=== PATIENT | male | born 1975 | race Caucasian/White ===

== ENCOUNTER → 2022-06-20 16:04 | Outpatient (CLI) | payer OTHER, SELFPAY ==
--- NOTE | 2022-06-20 16:08 | DI.RAD.S_ITS ---
PROCEDURE: XR FOOT LT MIN 3V INDICATIONS: trauma TECHNIQUE: 3 views of the foot were acquired. COMPARISON: None. FINDINGS: Bones: No fractures or dislocations. No suspicious bony lesions. Plantar and posterior calcaneal spurs. Soft tissues: No tibiotalar joint effusion. Achilles tendon appears normal. Soft tissue edema along the dorsal foot. IMPRESSION: Dorsal foot edema without fracture identified Dictated by: Alpesh Sepulveda M.D. on 06/20/2022 at 16:12 Approved by: Alpesh Sepulveda M.D. on 06/20/2022 at 16:13
== END ==
PROVIDERS: Referring Provider Nurse Practitioner Family; Visit Provider Nurse Practitioner Family
DX: S99.922A Unspecified injury of left foot, initial encounter (principal); M77.32 Calcaneal spur, left foot; X58.XXXA Exposure to other specified factors, initial encounter
CPT/HCPCS: 73630

== ENCOUNTER → 2022-09-23 13:02 | Outpatient (CLI) | payer OTHER, SELFPAY ==
--- NOTE | 2022-10-06 16:19 | DIAB.MNT ---
Addendum entered by Meri Carson 10/20/22 17:42: Medication correction Diabetes Medications: 500mg Metformin BID 5mg Farxiga Original Note: Initial Diabetes Medical Nutrition Therapy Assessment Name: Fer Solitario Date: 09/23/22 Time: 1-220p Dx: Type II Diabetes Provider: Jorge Monroe presents for initial visit with spouse, Joan. Only FH reported is maternal uncle with DM. Reports new diagnosis of Dm with hgA1c of 10.4% per referral. Diagnosis made after a foot injury was not healing properly. States he has been borderline with BG for a few years and dealt with BP issues for years. Reports they are interested in learning more about nutrition, reducing Dm complications, and problem solving for BG. h/o low carb dieting. Diet Recall: 6am: 1 can V8 with 12oz milk and meds 9-10a: apple or beef jerky 11a: leftovers; lunch meat with cottage cheese and tomatoes; tacos 5p: tacos on low carb tortillas or 3 corn tortillas with 1/3c or less beans, meat and veggies ; meatballs with veggies and rice or potatoes x 1/2-1c ; portuguese dip sandwich on roll with 1c tater tots and salad Beverages; water 78-104oz, zip fizz, ETOH x 4 servings Anthropometrics: Ht: 6' Wt: 222# last PCP visit 07/27/22 Physical Activity: No intentional program. Has a stationary bike but does not enjoy it. Difficult to use it more than 10 mins. Enjoys hiking and walking. Self-Monitoring Blood Glucose: Checking FBG. Reports usual range of 120-145mg/dL. today pre lunch of 109mg/dL. August B, 155, 150, 144, 147, 138, 135. Diabetes Medications: 500mg Metformin BID 25mg Farxiga Pertinent Labs: 07/21/22 hgA1c 10.4% H Total cholesterol: 242 H Triglycerides 134 LDL: 147 H HDL: 69 AST: 17 ALT: 47 H Past Medical History: Reported: HTN, retinopathy Nutrition Rx: Carbohydrates: Daily: 130-180 Meal:45-60g Snack:15-30g Nutrition Diagnosis: - Nutrition and food related knowledge deficit r/t new dx of DM aeb hgA1c 10.4% and diet recall indicating inconsistent CHO intake - Excessive ETOH intake r/t stage of change and knowledge deficit aeb diet recall and pt report - Physical inactivity r/t no intentional program aeb pt report Intervention: This participant was very receptive. Provided appropriate educational handouts. Discussed the following topics: Completed intake assessment. Discussed barriers to care. Pathophysiology of T2DM HgA1c, its correlation to blood glucose numbers, and rationale for goal Importance of self-monitoring, how often, and when to check. Suggested checking at different times to evaluate meals Plate Method, impact of macronutrients on blood sugar, meal timing, carbohydrate counting, pairing macronutrients and spreading out carbohydrates for better blood glucose management Recommended servings for carbohydrates at meals and snacks Heart health nutrition; ETOH recs Role of physical activity and following provider guidelines for safety Created SMART goals for patient self-care and success. Goals: 10-15 min on bike 2-3 days per week incorporate weekend walks Measure carb portions Cut ETOH portion in half (2 servings) Follow-up: [facility] follow-up in 3-4 weeks Meri Carson RDN, MARIS Certified Diabetes Care and Postdoctoral Research Associate P: [phone] Thank you for this referral
== END ==
PROVIDERS: Referring Provider Family Medicine; Visit Provider Family Medicine
DX: E11.9 Type 2 diabetes mellitus without complications (principal); Z71.3 Dietary counseling and surveillance
CPT/HCPCS: 97802

== ENCOUNTER → 2022-10-14 14:51 | Outpatient (CLI) | payer OTHER, SELFPAY ==
--- NOTE | 2022-10-20 17:21 | DIAB.MNTFU ---
Follow-up Diabetes Medical Nutrition Therapy Assessment Name: Fer Solitario Date: 10/14/22 Time: 3-340p Dx: Type II Diabetes Fer presents today for follow-up DM visit. States he has been taking meds as rx'd. Reports increasing physical activity and being more conscious of nutrition choices. Endorses measuring carb portions and reducing ETOH portions by half to 2 servings per day. Diet recall indicates moderate to low carb intake at meals and snacks. Aiming for 45g CHO at meals, as discussed last visit. >5 hours between lunch and dinner, which could increase excessive hunger at dinner. Also trying to avoid snacks in the evening. Encouraged setting a balanced snack. States he has been rx'd Metformin XR, but he is still waiting on availability at the pharmacy. Furthermore, he reports no GI distress with Metformin. Has not tried higher dose. Has concerns with higher cost of SGLT2i. May benefit from increase in Metformin to max dose and d/c Farxiga. Sees PCP in December. Dr. Coello has placed new labs for Fer to complete prior to visit in December. Encouraged Fer to complete these prior to their visit. Anthropometrics: Ht: 6' Wt: 222# last PCP visit 07/27/22 (no new wts) Physical Activity: More active lately at work. When not as active at work, on stationary bike fo r10-15 minutes. Incorporating weekend walks with the family. Self-Monitoring Blood Glucose: checking >2 times per day, which is helpful but discussed that he could keep it to 1-2x per day if he prefer. 3/ elevated FBG (just over 130). All other readings in goal. Date Pre Post Pre Post Pre Post HS 10/06 120 88 125 152 10/07 130 112 118 10/08 128 120 107 117 10/09 141 121 10/11 134 134 10/13 130 95 117 137 118 10/14 136 97 111 Diabetes Medications: 500mg Metformin BID 5mg Farxiga Pertinent Labs: 07/21/22 hgA1c 10.4% H Total cholesterol: 242 H Triglycerides 134 LDL: 147 H HDL: 69 AST: 17 ALT: 47 H Past Medical History: Reported: HTN, retinopathy Nutrition Rx: Carbohydrates: Daily: 130-180 Meal:45-60g Snack:15-30g Nutrition Diagnosis: - Nutrition and food related knowledge deficit r/t new dx of DM aeb hgA1c 10.4% and diet recall indicating inconsistent CHO intake - improved - Excessive ETOH intake r/t stage of change and knowledge deficit aeb diet recall and pt report - improved - Physical inactivity r/t no intentional program aeb pt report - improved and in progress - Inconsistent energy intake r/t long periods of fasting between lunch and dinner aeb diet recall- new Intervention: This participant was very receptive. Provided appropriate educational handouts. Discussed the following topics: Blood sugar review and trends. Impact of food intake on results. Nutrition review Medication review: potential for increase in Metformin if provider agrees Meal timing Snack list provided Physical activity plan and progress Created SMART goals for patient self-care and success. Goals: 10-15 min on bike 2-3 days per week- met incorporate weekend walks- met Measure carb portions- met Cut ETOH portion in half (2 servings)- met Complete labs prior to PCP visit in December- new Cont bike 2-3 x per week- new Cont weekend walks- new Option to add set afternoon and HS balanced snack-new Follow-up: [facility] follow-up in 6 weeks. Fer would like to push out follow-up since things seem to be going well. Will follow-up prior to PCP visit to encouraged continued lifestyle change. Meri Carson RDN, PAULINEES Certified Diabetes Care and [employer] P: [phone] Thank you for this referral
== END ==
PROVIDERS: Referring Provider Family Medicine; Visit Provider Family Medicine
DX: Z23 Encounter for immunization (principal)
CPT/HCPCS: 97803

== ENCOUNTER → 2022-12-23 14:19 | Outpatient (CLI) | payer OTHER, SELFPAY ==
--- NOTE | 2022-12-23 15:01 | DIAB.MNTFU ---
Follow-up Diabetes Medical Nutrition Therapy Assessment Name: Fer Solitario Date: 12/23/22 Time: 230-250p Dx: Type II Diabetes Fer presents for follow-up DM visit. Reports continued success with lifestyle changes. Diet going well. Continues to avoid sweets and sub fruit. Sometimes eats dry fruit in small quantity. Diet recall indicates moderate to low carb intake. Staying hydrated. Endorses seeing retina specialist and regular eye doctor annually or more. H/o retina issue. Sees dentist twice per year. Checks feet regularly. H/o foot injury during home construction project. Happy to almost be done with home construction project. States he saw his [facility] PCP since our last visit and hgA1c POC was <7%. Has [facility]CP appt scheduled at the end of the month. Has not completed labs yet. 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 No family walks. Hoping this will package pick up again after project is complete. Self-Monitoring Blood Glucose: BG even more improved from last visit with most FBG in the 120s. Pre lunch <115 and pre dinner often <120. Feels he is tired of checking BG so often. Encouraged checking 1-2x per day last visit. Can take a safe break from checking, but encouraged Fer to not stop SMBG all together intermediate. Diabetes Medications: 500mg Metformin BID 5mg Farxiga Pertinent Labs: Possible POC HgA1c of <7% last PCP visit 07/21/22 hgA1c 10.4% H Total cholesterol: 242 H Triglycerides 134 LDL: 147 H HDL: 69 AST: 17 ALT: 47 H Past Medical History: (Last Updated 10/07/22 @ 15:03 by Thad Coello, ) Hyperglycemia Past Medical History: Reported: HTN, retinopathy Nutrition Rx: Carbohydrates: Daily: 130-180 Meal:45-60g Snack:15-30g Nutrition Diagnosis: - Physical inactivity r/t no intentional program aeb pt report - in progress - Inconsistent energy intake r/t long periods of fasting between lunch and dinner aeb diet recall- continued Intervention: This participant was very receptive. Provided appropriate educational handouts. Discussed the following topics: Blood sugar review and trends. Portions for dried fruit SMBG recs and making time for a break without d/c all together Risk reduction: eye, dental, foot care Physical activity plan and progress Created SMART goals for patient self-care and success. Goals: Complete labs prior to PCP visit in December- in progress Cont bike 2-3 x per week- not met Cont weekend walks- not met Option to add set afternoon and HS balanced snack-continue Can take a break from SMBG for 2 weeks, then check at least 2-3x per week- new Be mindful of dried fruit portions- new Follow-up: [facility] follow-up prn. Fer is managing DM very well. Encouraged him to call or message with any questions or follow-up needs. Sees [facility] as a new pt this month. Encouraged him to complete labs prior. Meri Carson RDN, MARIS Certified Diabetes Care and Lean Manufacturing Engineer P: [phone] Thank you for this referral
== END ==
PROVIDERS: PCP Family Medicine; Referring Provider Family Medicine; Visit Provider Family Medicine
DX: E11.9 Type 2 diabetes mellitus without complications (principal); Z71.3 Dietary counseling and surveillance; Z79.84 Long term (current) use of oral hypoglycemic drugs
CPT/HCPCS: 97803

== ENCOUNTER → 2023-01-01 08:06 | Outpatient (CLI) | payer OTHER, SELFPAY ==
[2023-01-01 09:13] LABS: Alanine Aminotransferase 73 IU/L (<50); Albumin 4.6 g/dL (3.5-5.0); Albumin Globulin Ratio 1.8 (1.0-2.8); Alkaline Phosphatase 57 U/L (38-126); Aspartate Aminotransferase 44 IU/L (17-59); BUN Creatinine Ratio 15.6 (6-22); Bilirubin Total 1.1 mg/dL (0.2-1.3); Blood Urea Nitrogen 15 mg/dL (9-20); Calcium 9.1 mg/dL (8.4-10.2); Carbon Dioxide 28 mmol/L (22-32); Chloride 98 mmol/L (98-107); Estimated Glomerular Filt Rate > 60 mL/min (>60); Globulin 2.5 g/dL (1.7-4.1); Glucose 110 mg/dL (70-100); HEMOLYSIS < 15 (0-50); Potassium 4.3 mmol/L (3.4-5.1); Sodium 135 mmol/L (137-145); Total Protein 7.1 g/dL (6.3-8.2)
== END ==
PROVIDERS: PCP Family Medicine; Referring Provider Family Medicine; Visit Provider Family Medicine
DX: R73.9 Hyperglycemia, unspecified (principal)
CPT/HCPCS: 36415; 80053; 83036

== ENCOUNTER → 2023-07-30 07:51 | Outpatient (CLI) | payer OTHER, SELFPAY ==
[2023-07-30 10:15] LABS: Alanine Aminotransferase 55 IU/L (<50); Albumin 4.5 g/dL (3.5-5.0); Albumin Globulin Ratio 1.7 (1.0-2.8); Alkaline Phosphatase 62 U/L (38-126); Aspartate Aminotransferase 30 IU/L (17-59); BUN Creatinine Ratio 18.9 (6-22); Bilirubin Total 0.9 mg/dL (0.2-1.3); Blood Urea Nitrogen 17 mg/dL (9-20); Calcium 9.9 mg/dL (8.4-10.2); Carbon Dioxide 27 mmol/L (22-32); Chloride 95 mmol/L (98-107); Cholesterol 210 mg/dL (140-199); Estimated Glomerular Filt Rate > 60 mL/min (>60); Globulin 2.6 g/dL (1.7-4.1); Glucose 154 mg/dL (70-100); HDL Cholesterol 63 mg/dL (40-60); HEMOLYSIS < 15 (0-50); LDL Cholesterol Calculated 126 mg/dL (<100); Potassium 4.6 mmol/L (3.4-5.1); Sodium 133 mmol/L (137-145); Total Protein 7.1 g/dL (6.3-8.2); Triglycerides 107 mg/dL (35-150)
[2023-07-30 15:50] LABS: Hemoglobin A1C% w Est Avg Glu 6.6 % (4.0-6.0)
== END ==
PROVIDERS: PCP Family Medicine; Referring Provider Family Medicine; Visit Provider Family Medicine
DX: E11.9 Type 2 diabetes mellitus without complications (principal); I10 Essential (primary) hypertension
CPT/HCPCS: 36415; 80053; 80061; 83036

== ENCOUNTER → 2024-01-30 15:11 | Outpatient (CLI) | payer OTHER, SELFPAY ==
[2024-01-30 16:54] LABS: Hemoglobin A1C% w Est Avg Glu 6.9 % (4.0-6.0)
[2024-01-30 17:09] LABS: Alanine Aminotransferase 37 IU/L (<50); Albumin 4.8 g/dL (3.5-5.0); Albumin Globulin Ratio 2.1 (1.0-2.8); Alkaline Phosphatase 73 U/L (38-126); Aspartate Aminotransferase 21 IU/L (17-59); BUN Creatinine Ratio 17.6 (6-22); Bilirubin Total 0.6 mg/dL (0.2-1.3); Blood Urea Nitrogen 16 mg/dL (9-20); Calcium 9.7 mg/dL (8.4-10.2); Carbon Dioxide 32 mmol/L (22-32); Chloride 100 mmol/L (98-107); Cholesterol 216 mg/dL (140-199); Estimated Glomerular Filt Rate > 60 mL/min (>60); Globulin 2.3 g/dL (1.7-4.1); Glucose 130 mg/dL (70-100); HDL Cholesterol 71 mg/dL (40-60); HEMOLYSIS < 15 (0-50); LDL Cholesterol Calculated 112 mg/dL (<100); Sodium 138 mmol/L (137-145); Total Protein 7.1 g/dL (6.3-8.2); Triglycerides 164 mg/dL (35-150)
[2024-01-30 17:36] LABS: TSH w/ Reflex to FT4 2.26 uIU/mL (0.47-4.68)
== END ==
LOC: LAB 15:12
PROVIDERS: PCP Family Medicine; Referring Provider Family Medicine; Visit Provider Family Medicine
DX: R53.83 Other fatigue (principal); I10 Essential (primary) hypertension; E11.9 Type 2 diabetes mellitus without complications
CPT/HCPCS: 36415; 80053; 80061; 83036; 84443

== ENCOUNTER → 2024-07-21 07:32 | Outpatient (CLI) | payer OTHER, SELFPAY ==
[2024-07-21 09:00] LABS: Alanine Aminotransferase 42 IU/L (<50); Albumin 4.7 g/dL (3.5-5.0); Albumin Globulin Ratio 1.7 (1.0-2.8); Alkaline Phosphatase 57 U/L (38-126); Aspartate Aminotransferase 34 IU/L (17-59); BUN Creatinine Ratio 20.7 (6-22); Blood Urea Nitrogen 18 mg/dL (9-20); Carbon Dioxide 28 mmol/L (22-32); Chloride 96 mmol/L (98-107); Cholesterol 221 mg/dL (140-199); Estimated Glomerular Filt Rate > 60 mL/min (>60); Globulin 2.7 g/dL (1.7-4.1); Glucose 177 mg/dL (70-100); HDL Cholesterol 60 mg/dL (40-60); HEMOLYSIS 26 (0-50); LDL Cholesterol Calculated 130 mg/dL (<100); Potassium 4.9 mmol/L (3.4-5.1); Sodium 132 mmol/L (137-145); Total Protein 7.4 g/dL (6.3-8.2); Triglycerides 153 mg/dL (35-150)
[2024-07-21 09:02] LABS: Hemoglobin A1C% w Est Avg Glu 6.7 % (4.0-6.0)
== END ==
PROVIDERS: PCP Family Medicine; Referring Provider Family Medicine; Visit Provider Family Medicine
DX: E78.5 Hyperlipidemia, unspecified (principal); I10 Essential (primary) hypertension; E11.9 Type 2 diabetes mellitus without complications
CPT/HCPCS: 36415; 80053; 80061; 83036

== ENCOUNTER → 2025-02-09 07:37 | Outpatient (CLI) | payer OTHER, SELFPAY ==
[2025-02-09 09:08] LABS: Hemoglobin A1C% w Est Avg Glu 6.1 % (4.0-6.0)
[2025-02-09 09:26] LABS: Alanine Aminotransferase 20 IU/L (<50); Albumin 4.6 g/dL (3.5-5.0); Albumin Globulin Ratio 2.3 (1.0-2.8); Alkaline Phosphatase 69 U/L (38-126); Aspartate Aminotransferase 19 IU/L (17-59); BUN Creatinine Ratio 18.4 (6-22); Bilirubin Total 0.8 mg/dL (0.2-1.3); Blood Urea Nitrogen 16 mg/dL (9-20); Calcium 9.7 mg/dL (8.4-10.2); Carbon Dioxide 27 mmol/L (22-32); Chloride 99 mmol/L (98-107); Cholesterol 192 mg/dL (140-199); Estimated Glomerular Filt Rate > 60 mL/min (>60); Glucose 129 mg/dL (70-99); HDL Cholesterol 45 mg/dL (40-60); HEMOLYSIS < 15 (0-50); LDL Cholesterol Calculated 129 mg/dL (<100); Potassium 4.6 mmol/L (3.4-5.1); Sodium 135 mmol/L (137-145); Total Protein 6.6 g/dL (6.3-8.2); Triglycerides 89 mg/dL (35-150)
[2025-02-09 09:55] LABS: Prostate Specific Antigen 0.938 ng/mL (0.10-4.00)
== END ==
LOC: LAB 07:38
PROVIDERS: PCP Family Medicine; Referring Provider Family Medicine; Visit Provider Family Medicine
DX: E78.5 Hyperlipidemia, unspecified (principal); E11.9 Type 2 diabetes mellitus without complications; I10 Essential (primary) hypertension; Z00.00 Encounter for general adult medical examination without abnormal findings
CPT/HCPCS: 36415; 80053; 80061; 83036; 84153

== ENCOUNTER → 2025-09-21 07:38 | Outpatient (CLI) | payer OTHER, SELFPAY ==
[2025-09-21 09:16] LABS: Add Manual Diff / Slide Review NO; Hematocrit 48.7 % (41-53); Hemoglobin 17.1 g/dL (13.5-17.5); Lymphocytes Absolute Auto 2100 /uL (1100-4500); Mean Corpuscular HGB Conc 35.0 % (30-36); Mean Corpuscular Hemoglobin 30.7 PG (26-34); Mean Corpuscular Volume 87.8 fL (80-100); Platelet Count 243 X10^3/uL (150-400)
[2025-09-21 09:24] LABS: Hemoglobin A1C% w Est Avg Glu 6.2 % (4.0-6.0)
[2025-09-21 09:41] LABS: Alanine Aminotransferase 18 IU/L (<50); Albumin 4.7 g/dL (3.5-5.0); Albumin Globulin Ratio 1.9 (1.0-2.8); Alkaline Phosphatase 68 U/L (38-126); Blood Urea Nitrogen 15 mg/dL (9-20); Calcium 10.1 mg/dL (8.4-10.2); Carbon Dioxide 27 mmol/L (22-32); Chloride 101 mmol/L (98-107); Cholesterol 218 mg/dL (140-199); Estimated Glomerular Filt Rate > 60 mL/min (>60); Globulin 2.5 g/dL (1.7-4.1); Glucose 133 mg/dL (70-99); HDL Cholesterol 57 mg/dL (40-60); HEMOLYSIS < 15 (0-50); Potassium 4.6 mmol/L (3.4-5.1); Sodium 138 mmol/L (137-145); Total Protein 7.2 g/dL (6.3-8.2); Triglycerides 151 mg/dL (35-150)
== END ==
PROVIDERS: PCP Family Medicine; Referring Provider Family Medicine; Visit Provider Family Medicine
DX: E78.5 Hyperlipidemia, unspecified (principal); I10 Essential (primary) hypertension; E11.9 Type 2 diabetes mellitus without complications
CPT/HCPCS: 36415; 80053; 80061; 82043; 82570; 83036; 85025